=== PATIENT | female | born 1995 | race African-American/Black ===

== ENCOUNTER → 2017-07-29 | Outpatient (CLI) | payer OTHER ==
--- NOTE | 2017-07-29 11:43 | DIAGNOSTIC IMAGING REPORT ---
LUMBAR SPINE 5 VIEWS CLINICAL HISTORY: Low back pain. FINDINGS: 5 views of the lumbar spine are obtained. No prior studies are available for comparison at the time of dictation. The skeletal structures are well mineralized. There is no radiographic evidence of fracture or malalignment. Vertebral body height and alignment are maintained. Minimal apparent lumbar levocurvature is likely positional. The transverse and spinous processes are intact. There is no evidence of spondylolysis. The intervertebral disc spaces are well-maintained. The visualized bony pelvis appears intact. There is a nonobstructed abdominal bowel gas pattern. IMPRESSION: Unremarkable radiographic evaluation of the lumbosacral spine. Electronically signed by: Km Quintanilla M.D. 07/29/2017 11:42 AM Dictated Date/Time: 07/29/2017 11:41 AM
== END | disposition home or self-care (01) ==
LOC: C.RDSM 14:37
PROVIDERS: ATTEND Internal Medicine
DX: M54.5 Low back pain (principal)